=== PATIENT | female | born 1945 | race Caucasian/White ===

== ENCOUNTER 2017-09-26 14:01 | Emergency (ER) | payer BC, MEDICARE ==
[2017-09-26 14:53] LABS: #Eosinphils 0.2 thou/uL (0.0-0.7); #Lymphocytes 1.1 thou/uL (1.20-3.40); #Monocytes 0.6 thou/uL (0.11-0.59); #Neutrophils 4.6 thou/uL (1.40-6.50); %Basophils 0.5 % (0.0-1.0); %Eosinophils 2.5 % (0.0-10.0); %Lymphocytes 16.6 % (21.0-51.0); %Monocytes 8.7 % (0.0-10.0); %Neutrophils 71.7 % (42.0-75.0); Mean Corpuscular HGB CONC 34.4 g/dL (32.0-36.0); Mean Corpuscular Hemoglobin 35.3 pg (27.0-31.0); Mean Platelet Volume 6.8 fL (7.4-10.4); Platelet Count 195 thou/uL (130-400); Red Blood Cell (RBC) Count 3.41 mill/uL (4.20-5.40); White Blood Cell (WBC) Count 6.5 thou/uL (4.8-10.8)
[2017-09-26 15:14] LABS: ALT (SGPT) 17 U/L (8-55); AST (SGOT) 14 U/L (5-34); Albumin 3.4 g/dL (3.4-4.8); Alkaline Phosphatase 103 U/L (40-150); Anion Gap 11 mmol/L (10-20); BUN (Urea Nitrogen) 12 mg/dL (9.8-20.1); Bilirubin, Total 0.7 mg/dL (0.2-1.2); Calc. Creatinine Clearance 0 mL/min (70-130); Calcium 8.5 mg/dL (7.8-10.44); Carbon Dioxide 26 mmol/L (23-31); Chloride 107 mmol/L (98-107); Estimated GFR-MDRD 72; Globulin 2.6 g/dL (2.4-3.5); Glucose 110 mg/dL (83-110); Potassium 3.5 mmol/L (3.5-5.1); Sodium 140 mmol/L (136-145)
== END 2017-09-26 16:30 | disposition home or self-care (01) ==
LOC: ERS 14:01
DX: K92.1 Melena (principal); Z79.899 Other long term (current) drug therapy
CPT/HCPCS: 36415; 80053; 82274; 85025; 99284

== ENCOUNTER 2018-07-17 13:38 | Emergency (ER) | payer MEDICARE, BC ==
--- NOTE | 2018-07-17 14:28 | RAD ---
LEFTankle 3 views INDICATION: Fall with left ankle injury COMPARISON: None. FINDINGS: Bones: Intact. Ankle mortise: Symmetric. Talar Dome: Intact. Subtalar joint: Normal. Visualized hindfoot: Normal. Periarticular soft tissues: Moderate circumferential soft tissue swelling IMPRESSION: 1. No acute fracture or subluxation demonstrated.
--- NOTE | 2018-07-17 14:29 | RAD ---
XR Knee Lt 4 View STANDARD: 07/17/2018 2:15 PM CLINICAL INDICATION: Fall with left knee pain COMPARISON: None. FINDINGS: Bones: There is a nondisplaced oblique fracture involving the left femoral head. Joints: There is mild osteoarthrosis of the left knee predominantly affecting the patella femoral com partment.. Soft Tissue: There is joint capsular distention within the left knee joint.. IMPRESSION: Nondisplaced proximal fibular head fracture..
== END 2018-07-17 15:15 | disposition home or self-care (01) ==
LOC: ERS 13:38
DX: S82.435A Nondisplaced oblique fracture of shaft of left fibula, initial encounter for closed fracture (principal); S93.402A Sprain of unspecified ligament of left ankle, initial encounter; K27.9 Peptic ulcer, site unspecified, unspecified as acute or chronic, without hemorrhage or perforation; M35.3 Polymyalgia rheumatica; W10.9XXA Fall (on) (from) unspecified stairs and steps, initial encounter

== ENCOUNTER 2022-04-06 16:24 | Outpatient (CLI) | payer MEDICARE, BC | END 2022-04-06 16:25 | disposition home or self-care (01) | LOC: BICRAD 16:24 | PROVIDERS: ATTEND Orthopaedic Surgery | DX: Z01.818 Encounter for other preprocedural examination (principal); S42.202D Unspecified fracture of upper end of left humerus, subsequent encounter for fracture with routine healing; Z96.612 Presence of left artificial shoulder joint ==